=== PATIENT | female | born 1975 | race Caucasian/White ===

== ENCOUNTER 2017-12-08 04:01 | Emergency (ER) | payer SELFPAY ==
[~2017-12-08] VITALS: Ht 167.6 cm; Wt 79.4 kg
[2017-12-08 04:05] VITALS: BP_SYST 136
[2017-12-08 04:48] VITALS: BP_SYST 128
== END 2017-12-08 04:48 ==
LOC: SED 04:01
DX: Z04.1 Encounter for examination and observation following transport accident (principal); R03.0 Elevated blood-pressure reading, without diagnosis of hypertension; V43.52XA Car driver injured in collision with other type car in traffic accident, initial encounter; Y93.89 Activity, other specified; Y92.488 Other paved roadways as the place of occurrence of the external cause; Y99.8 Other external cause status
CPT/HCPCS: 99283